=== PATIENT | male | born 1975 | race African-American/Black ===

== ENCOUNTER 2021-07-18 10:18 | Emergency (ER) | payer OTHER ==
[~2021-07-18] VITALS: Ht 182.9 cm; Wt 126.2 kg
[2021-07-18 10:19] VITALS: BP 141/92
--- NOTE | 2021-07-18 12:58 | REP ---
INDICATION: L wrist pain, 2 "bumps" after pullups injury COMPARISON: None. TECHNIQUE: AP, lateral, bilateral oblique views left wrist. FINDINGS: The carpal bones, surrounding osseous structures, soft tissues, and joint spaces are normal. There is no evidence for acute fracture or dislocation. No subcutaneous emphysema or radiodense foreign body. Old corticated ulnar styloid fracture noted. IMPRESSION: No acute pathology. Old ulnar styloid fracture. <Electronically signed by Arturo Chakraborty > 07/18/21 [id number]
== END 2021-07-18 14:36 | disposition home or self-care (01) ==
LOC: M ED 10:18
DX: S63.502A Unspecified sprain of left wrist, initial encounter (principal); X50.0XXA Overexertion from strenuous movement or load, initial encounter; Y92.9 Unspecified place or not applicable; Y93.B2 Activity, push-ups, pull-ups, sit-ups; Y99.9 Unspecified external cause status; D55.0 Anemia due to glucose-6-phosphate dehydrogenase [G6PD] deficiency